=== PATIENT | male | born 1955 | race Caucasian/White ===

== ENCOUNTER → 2016-05-06 | Outpatient (CLI) | payer BC ==
--- NOTE | 2016-05-06 10:55 | US ---
EXAMINATION TYPE: US venous doppler duplex LE DATE OF EXAM: 05/06/2016 10:34 AM COMPARISON: NONE CLINICAL HISTORY: R60.0 Edema in legs. SIDE PERFORMED: Bilat VESSELS IMAGED: External Iliac Vein (EIV) Common Femoral Vein Deep Femoral Vein Greater Saphenous Vein * Femoral Vein Popliteal Vein Proximal Calf Veins (* superficial vessels) TECHNOLOGIST IMPRESSION: wnl Right Leg: Appears negative for DVT Left Leg: Appears negative for DVT, superficial thrombus seen within GSV from upper calf extending t hrough GSV junction at groin tech impression to Kelly at office @ 1038 Satisfactory color flow, phasicity, compressibility is seen in the above deep venous structures above the level of the knee. Satisfactory color flow is seen in proximal calf veins below level of knee bi laterally. Left-sided greater saphenous vein shows hyperechoic material expanding the lumen with abse nt color flow along its entire course on images saved. Right-sided greater saphenous vein show satisf actory color flow. IMPRESSION: Long segment SVT in the left greater saphenous vein. No acute DVT in either lower extrem ity.
== END | disposition home or self-care (01) ==
LOC: RADUSWWP 09:57
PROVIDERS: ATTEND Family Medicine
DX: R60.0 Localized edema (principal)
CPT/HCPCS: 93970

== ENCOUNTER → 2017-07-24 | Outpatient (CLI) | payer OTHER ==
--- NOTE | 2017-07-24 14:02 | MR ---
EXAMINATION TYPE: MR knee RT wo con DATE OF EXAM: 07/24/2017 COMPARISON: NONE HISTORY: Rt knee pain, injured 2 mos ago TECHNIQUE: Multiplanar, multisequence images of the knee is performed without IV contrast. FINDINGS: MEDIAL MENISCUS: Complex tear posterior horn and body medial meniscus. Anterior horn is intact. LATERAL MENISCUS: Anterior and posterior horns are intact without tear. CRUCIATE LIGAMENTS: The anterior and posterior cruciate ligaments are intact and unremarkable. COLLATERAL LIGAMENTS: The medial collateral ligament and lateral collateral ligament complex are inta ct and unremarkable. EXTENSOR MECHANISM: Visualized quadriceps and patellar tendons are intact. EFFUSION: Small suprapatellar joint effusion noted. POPLITEAL CYST: Popliteal fossa cyst measuring 3.4 cm in length. TRICOMPARTMENT SPACES: Moderate narrowing medial tibiofemoral joint space and patellofemoral joint sp nanette. CARTILAGE: Thinning of the patellar cartilage. BONE MARROW SIGNAL: No focal abnormal marrow signal is appreciated. OTHER: No additional significant abnormality is appreciated. IMPRESSION: 1. Complex tear posterior horn medial meniscus. 2. Popliteal fossa cyst. 3. Changes of osteoarthritis.
== END | disposition home or self-care (01) ==
LOC: RADMRIMAIN 12:01
PROVIDERS: ATTEND Family Medicine
DX: S83.232A Complex tear of medial meniscus, current injury, left knee, initial encounter (principal); M17.12 Unilateral primary osteoarthritis, left knee; M71.22 Synovial cyst of popliteal space [Baker], left knee